=== PATIENT | male | born 1950 | race Caucasian/White ===

== ENCOUNTER 2023-06-09 19:37 | Inpatient (IN) | payer MEDICARE ==
[~2023-06-09] VITALS: Ht 180.3 cm; Wt 94.0 kg
[~2023-06-09 19:37] MED LIST: BACL-11 PO; CLOP-32 PO; DILT-36 PO; DUTA0.5C40 PO; ESCI20TA39 PO; FLO0.4C PO; MIRT-142 PO; ROPI0.5T37 PO; SIMV-42 PO; TRAM50TA2 PO; ZOLP5TAB8 PO
[2023-06-09 20:29] LABS: BASOPHILS # (AUTO) 0.1 X10'3 (0-0.2); BASOPHILS % (AUTO) 0.5 % (0-1); EOSINOPHILS # (AUTO) 0.1 X10'3 (0-0.9); EOSINOPHILS % (AUTO) 1.3 % (0-6); HEMATOCRIT 46.4 % (42.0-52.0); HEMOGLOBIN 15.9 g/dl (14.0-17.9); MEAN CORPUSCULAR HEMOGLOBIN 31.2 PG (27.0-31.0); MEAN CORPUSCULAR HGB CONC 34.4 g/dL (33.0-36.5); MEAN CORPUSCULAR VOLUME 90.7 FL (78-98); MONOCYTES # (AUTO) 0.7 X10'3 (0-0.9); MONOCYTES % (AUTO) 6.8 % (2-12); NEUTROPHILS # (AUTO) 7.5 X10'3 (1.8-7.7); NEUTROPHILS % (AUTO) 72.4 % (42-75); PLATELET COUNT 197 X10'3 (140-440); RED BLOOD COUNT 5.11 X10'6 (4.70-6.10); RED CELL DISTRIBUTION WIDTH 13.6 % (11.5-14.5); WHITE BLOOD COUNT 10.4 X10'3 (4.5-11.0)
[2023-06-09 20:46] LABS: ALBUMIN 3.6 G/DL (3.4-5.0); ANION GAP 12 (8-16); BLOOD UREA NITROGEN 14 MG/DL (7-18); BUN/CREATININE RATIO 14.9 (10.0-20.0); CALCIUM 9.1 MG/DL (8.5-10.1); CHLORIDE 110 MMOL/L (99-107); CREATININE 0.94 MG/DL (0.60-1.10); GLUCOSE 101 MG/DL (70-104); POTASSIUM 3.8 MMOL/L (3.5-5.1); SODIUM 148 MMOL/L (135-145); TOTAL CARBON DIOXIDE 26.5 MMOL/L (24-32); eCRCL 75 ML/MIN; eGFR 79 ML/MIN
[2023-06-09 20:50] LABS: APTT 28 SECONDS (22-32); PROTHROMBIN TIME 10.9 SECONDS (9.0-12.0)
[2023-06-09] MEDS: LidoCAINE 2% Topical Jelly 11mL syringe (UROJET) TOP ONE (22:04)
[2023-06-09] MEDS ORDERED: potassium Cl 20 mEq SR tablet PO PRN ×2 (23:50)
[2023-06-09] MEDS ORDERED: magnesium Cl slow-release 64mg tablet PO PRN (23:50)
[2023-06-09] MEDS ORDERED: ondansetron/PF 4mg/2ml inj IV PRN (23:50)
[2023-06-09] MEDS ORDERED: magnesium 4gm in 100ml NS 100 ML IV PRN (23:50)
[2023-06-09] MEDS ORDERED: potassium Cl 40MEQ/1/2NS 520ml 520 ML IV PRN (23:50)
[2023-06-09] MEDS ORDERED: mag hydrox/Alum hydrox/simeth 30ml oral suspension PO PRN (23:50)
[2023-06-09] MEDS ORDERED: magnesium hydroxide 30ml (MOM) UD suspension PO PRN (23:50)
[2023-06-09] MEDS ORDERED: magnesium 2GM in 50ml NS 50 ML IV PRN (23:50)
[2023-06-10 00:17] LABS: HEMOGLOBIN A1C 6.3 % (4.5-6.2)
[2023-06-10] MEDS: normal saline 1000ml 1,000 ML IV SCH (00:22)
[2023-06-10] MEDS: acetaminophen 325mg tablet PO PRN (00:27)
[2023-06-10] MEDS ORDERED: ASPI-1265 PO (01:08)
[2023-06-10] MEDS ORDERED: CLOP75TA34 PO (01:09)
[2023-06-10] MEDS ORDERED: BACL10TA2 PO (01:12)
[2023-06-10] MEDS ORDERED: ZOLP10TA PO (01:17)
[2023-06-10] MEDS ORDERED: ATOR20TA66 PO ×2 (01:19→13:36)
[2023-06-10] MEDS ORDERED: SIMV-45 PO (01:19)
[2023-06-10] MEDS ORDERED: GABA300T28 PO (01:23)
[2023-06-10 02:44] VITALS: BP 123/49; PULSE 54; RESP 14; TEMP 98; O2SAT 97
[2023-06-10 02:52] VITALS: RESP 14; O2SAT 97
[2023-06-10] MEDS ORDERED: traMADol 50MG tablet PO PRN (03:00)
[2023-06-10] MEDS ORDERED: GABA300C PO (03:10)
[2023-06-10 06:33] VITALS: BP 125/53; PULSE 61; RESP 16; TEMP 97.5; O2SAT 94
[2023-06-10 06:34] LABS: BASOPHILS % (AUTO) 0.6 % (0-1); EOSINOPHILS # (AUTO) 0.1 X10'3 (0-0.9); EOSINOPHILS % (AUTO) 1.6 % (0-6); HEMATOCRIT 40.1 % (42.0-52.0); HEMOGLOBIN 13.9 g/dl (14.0-17.9); LYMPHOCYTES % (AUTO) 30.5 % (21-51); MEAN CORPUSCULAR HEMOGLOBIN 31.3 PG (27.0-31.0); MEAN CORPUSCULAR HGB CONC 34.6 g/dL (33.0-36.5); MEAN CORPUSCULAR VOLUME 90.7 FL (78-98); MEAN PLATELET VOLUME 8.1 FL (7.4-10.4); MONOCYTES # (AUTO) 0.5 X10'3 (0-0.9); MONOCYTES % (AUTO) 7.1 % (2-12); NEUTROPHILS % (AUTO) 60.2 % (42-75); PLATELET COUNT 167 X10'3 (140-440); RED BLOOD COUNT 4.43 X10'6 (4.70-6.10); RED CELL DISTRIBUTION WIDTH 13.3 % (11.5-14.5); WHITE BLOOD COUNT 6.7 X10'3 (4.5-11.0)
[2023-06-10 07:04] LABS: ALANINE AMINOTRANSFERASE 17 U/L (12-78); ALBUMIN 2.9 G/DL (3.4-5.0); ALKALINE PHOSPHATASE 56 IU/L (46-116); ANION GAP 8 (8-16); ASPARTATE AMINO TRANSFERASE 14 U/L (10-37); BILIRUBIN,TOTAL 0.5 MG/DL (0.1-1.0); BLOOD UREA NITROGEN 14 MG/DL (7-18); BUN/CREATININE RATIO 16.7 (10.0-20.0); CALCIUM 8.2 MG/DL (8.5-10.1); CHLORIDE 111 MMOL/L (99-107); CHOL/HDL RATIO 3.6 (0.00-4.99); CHOLESTEROL 130 MG/DL (0-200); CREATININE 0.84 MG/DL (0.60-1.10); GLUCOSE 104 MG/DL (70-104); HDL CHOLESTEROL 36 MG/DL (35-60); LDL CHOLESTEROL 75 MG/DL (50-100); MAGNESIUM 1.8 MG/DL (1.5-2.4); PHOSPHORUS 3.6 MG/DL (2.3-4.5); POTASSIUM 3.7 MMOL/L (3.5-5.1); SODIUM 145 MMOL/L (135-145); TOTAL CARBON DIOXIDE 26.3 MMOL/L (24-32); TOTAL PROTEIN 5.9 G/DL (6.4-8.2); TRIGLYCERIDES 107 MG/DL (20-135); eCRCL 83 ML/MIN; eGFR 90 ML/MIN
[2023-06-10] MEDS ORDERED: gabapentin 300mg capsule PO SCH (08:00)
[2023-06-10] MEDS: K and/or MAG REPLACEMENT MC SCH (08:00)
[2023-06-10 10:00] VITALS: BP 130/51; PULSE 66; RESP 16; TEMP 98.4; O2SAT 96
[2023-06-10] MEDS: ESCITALOPRAM 10 mg tablet 10 MG TABLET PO SCH (10:55)
[2023-06-10] MEDS: diltiazem CD 180mg cap (once-daily) PO SCH (10:55)
[2023-06-10] MEDS: aspirin 81mg tab.chew PO SCH (10:56)
[2023-06-10] MEDS: heparin, porcine 5000 units/ml vial SQ SCH (10:56)
[2023-06-10] MEDS: clopidogrel 75mg tablet PO SCH (10:56)
[2023-06-10] MEDS: gabapentin 300mg capsule PO SCH (10:56)
[2023-06-10] MEDS: docusate sod 100mg capsule PO SCH (10:56)
[2023-06-10] MEDS: atorvastatin 20mg tablet PO SCH (11:29)
[2023-06-10] MEDS ORDERED: iohexol 350MG/ML 100ml bottle IV ONE (11:38)
[2023-06-10] MEDS ORDERED: GADOTERATE MEGLUMINE 7.5 MMOL/15 ML VIAL IV ONE (12:53)
[2023-06-10 14:41] VITALS: BP_SYST 123; BP_SYST 150; BP_SYST 176; BP_DIAS 118; BP_DIAS 64; BP_DIAS 85; PULSE 63; PULSE 69; PULSE 70
[2023-06-10 18:00] VITALS: BP 121/49; PULSE 62; RESP 16; TEMP 98; O2SAT 97
[2023-06-10] MEDS ORDERED: tamsulosin 0.4mg capsule PO SCH (21:00)
[2023-06-10] MEDS ORDERED: ROPINIRole 1mg tablet PO SCH (21:00)
[2023-06-10] MEDS ORDERED: zolpidem 5mg tablet PO SCH (21:00)
[2023-06-10] MEDS ORDERED: mirtazapine 15mg tablet PO SCH (21:00)
[2023-06-11] MEDS ORDERED: diltiazem CD 180mg cap (once-daily) PO SCH (08:00)
[2023-06-11] MEDS ORDERED: ATOR20TA66 PO (12:44)
[2023-06-11] MEDS ORDERED: CARCD120C PO (12:44)
== END 2023-06-10 19:11 | disposition home or self-care (01) | DRG 312 ==
LOC: ER 19:38 → ED HOLD 23:50 → EDBEDREQ 06-10 01:15 → ORTHO 4S 06-10 02:05
PROVIDERS: ADMIT Internal Medicine Critical Care Medicine; ATTEND Family Medicine
PROC: 4A00X4Z Measurement of Central Nervous Electrical Activity, External Approach (ICD-10-PCS; principal; 2023-06-10)
PROC: B3251ZZ Computerized Tomography (CT Scan) of Bilateral Common Carotid Arteries using Low Osmolar Contrast (ICD-10-PCS; 2023-06-10)
PROC: B32G1ZZ Computerized Tomography (CT Scan) of Bilateral Vertebral Arteries using Low Osmolar Contrast (ICD-10-PCS; 2023-06-10)
PROC: B32R1ZZ Computerized Tomography (CT Scan) of Intracranial Arteries using Low Osmolar Contrast (ICD-10-PCS; 2023-06-10)
PROC: B3281ZZ Computerized Tomography (CT Scan) of Bilateral Internal Carotid Arteries using Low Osmolar Contrast (ICD-10-PCS; 2023-06-10)
DX: R55 Syncope and collapse (principal); R00.1 Bradycardia, unspecified; I10 Essential (primary) hypertension; F17.210 Nicotine dependence, cigarettes, uncomplicated; E78.5 Hyperlipidemia, unspecified; I48.91 Unspecified atrial fibrillation; F32.A Depression, unspecified; R33.9 Retention of urine, unspecified; G25.81 Restless legs syndrome; E11.51 Type 2 diabetes mellitus with diabetic peripheral angiopathy without gangrene; Z79.01 Long term (current) use of anticoagulants; Z79.899 Other long term (current) drug therapy; Z79.82 Long term (current) use of aspirin; Z86.73 Personal history of transient ischemic attack (TIA), and cerebral infarction without residual deficits
CPT/HCPCS: 36415; 70450; 70496; 70498; 70553; 71045; 72040; 80048; 80053; 80061; 82948; 83036; 83735; 84100; 85025; 85610; 85730; 87081; 93005; 93306; 93880; 95816; 97161; 97530; 99285; A4340; A9575; G0378; J1644; J3490; J7030; Q9967